=== PATIENT | female | born 1960 | race Caucasian/White ===

== ENCOUNTER 2023-06-25 05:48 | Day surgery (SDC) | payer BC ==
[2023-06-24 11:01] VITALS: BMI 22.0
[~2023-06-25 05:48] MED LIST: EPINEPHrine 0.3 MG in Ophthalmic Irrigation Solution 500 ML IRR SCH
[2023-06-25] MEDS ORDERED: PHENYLephrine 2.5% Ophth Soln 15 ml Bottle ONE (06:15)
[2023-06-25] MEDS ORDERED: Cyclopentolate 0.5% Opth Drops 15 ML BOT ONE (06:16)
[2023-06-25] MEDS ORDERED: fentaNYL 50 mcg/mL 1 mL Vial ONE (06:47)
[2023-06-25] MEDS ORDERED: Midazolam HCl 2 mg/2 ml Vial ONE (06:47)
[2023-06-25] MEDS ORDERED: PROPOFOL 20 ML ONE (06:51)
[2023-06-25] MEDS ORDERED: CEFAZOLIN 1 GM VIAL ONE (07:02)
[2023-06-25] MEDS ORDERED: Lidocaine 4% PF 5 ML AMP ONE (07:02)
[2023-06-25] MEDS ORDERED: Maxitrol 0.1% Opth Oint 3.5 GM TUBE ONE (07:02)
[2023-06-25] MEDS ORDERED: Bupivacaine 0.75% 10 ML VIAL ONE (07:02)
[2023-06-25] MEDS ORDERED: Dexamethasone 4 mg/ml Vial ONE ×2 (07:02→07:05)
[2023-06-25] MEDS ORDERED: Lidocaine 1% PF 5 ML VIAL ONE (07:02)
[2023-06-25] MEDS ORDERED: Ondansetron PF 4 MG/2 ML Vial ONE (07:06)
== END 2023-06-25 07:58 | disposition home or self-care (01) ==
LOC: SDC 05:48 → SURG A 05:50 → UNDOADMIN 05:50 → SDC 07:58
PROVIDERS: ATTEND Ophthalmology Retina Specialist
PROC: 08T43ZZ Resection of Right Vitreous, Percutaneous Approach (ICD-10-PCS; principal; 2023-06-25)
PROC: 08NE3ZZ Release Right Retina, Percutaneous Approach (ICD-10-PCS; principal; 2023-06-25)
DX: H43.311 Vitreous membranes and strands, right eye (principal)
CPT/HCPCS: J0171; J0690; J1100; J2250; J2405; J2704; J3010; J3490